=== PATIENT | male | born 1990 | race Caucasian/White ===

== ENCOUNTER 2021-05-13 16:43 | Emergency (ER) | payer MEDICAID, SELFPAY ==
--- NOTE | 2021-05-13 | ECG_ITS ---
Test Reason : dyspnea Blood Pressure : / mmHG Vent. 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
--- NOTE | ~2021-05-13 | XR_ITS ---
EXAMINATION: XR CHEST CLINICAL INFORMATION: Cough. COMPARISON: None TECHNIQUE: Frontal view of the chest was obtained. 5:55 PM FINDINGS: No significant abnormality is noted involving the heart, lungs, mediastinum, bony thorax or soft tissues. XR/XR chest 1V IMPRESSION: Unremarkable examination.
[2021-05-13 17:14] VITALS: BP 148/93; PULSE 95; RESP 20; TEMP 36.3; O2SAT 97; BMI 30.2
--- NOTE | 2021-05-13 17:27 | ED_ITS ---
HPI - URI/Sore Throat General Chief Complaint: Upper Respiratory Symptoms Stated Complaint: CP, nose pain Time Seen by Provider: 05/13/21 17:24 Source: patient Mode of arrival: ambulatory Limitations: no limitations History of Present Illness HPI Narrative: 31-year-old male with no medical problems presents to the ER with central chest pains and coughing that started yesterday. He reports some body aches, weakness, and fatigue as well. He called out of work yesterday because he was not feeling well. He reports whenever he coughs he has a heavy and tight chest pains. Pain is worse with deep breaths and with palpation of his chest wall. No fever or chills. He has sweating episodes and feels like he might have had a fever but has not checked his temp. He is not having SOB or BRITTON. No leg swelling or pain. No known sick contacts. He is not vaccinated against COVID-19. MD elicited complaint: cough and nasal congestion Onset (ago): day(s) (1) Consistency: intermittent Severity: moderate Pain scale (0-10): 5 Description of mucous: clear Able to tolerate fluids by mouth: Yes Exacerbating factors: deep breaths and other (coughing) Relieving factors: nothing Associated symptoms: myalgias, diaphoresis, headache, nasal congestion, cough and chest pain Treatments prior to arrival: none Related Data Previous Rx's Medication Instructions Recorded azithromycin 250 mg tablet See Rx Instructions .ROUTE 05/13/21 (Zithromax Z-Jorge) .COMPLEX #6 tab hydrocodone-homatropine 5 mg-1.5 5 ml PO Q4-6H PRN #60 ml 05/13/21 mg/5 mL (5 mL) oral syrup (Hycodan) ibuprofen 600 mg tablet 600 mg PO Q8H PRN #14 tab 05/13/21 Allergies Allergy/AdvReac Type Severity Reaction Status Date / Time Unable to Assess Allergy Unverified 05/13/21 17:25 Review of Systems Review of Systems: Constitutional: No Fever, No Chills ENT/Mouth: No sore throat, No Rhinorrhea, No Swallowing Difficulty Cardiovascular: + Chest Pain, No SOB, No Orthopnea, No Edema Respiratory: + Cough, + Sputum, No Wheezing, No dyspnea Gastrointestinal: No Nausea, No Vomiting, No Diarrhea, No abdominal Pain Musculoskeletal: No joint pain, No Myalgias Skin: No Skin Lesions, No rash Neuro: No Weakness, No Numbness, No Dizziness, No Headache Psych: No Anxiety/Panic, No Depression Heme/Lymph: No Bruising, No Lymphadenopathy [facility], [facility] Social History Social History Advance Directives: No Advance Directives Information Provided: Yes Physical Exam Vital Signs: Vital Signs: Last Vital Signs Temp 97.4 F 05/13/21 17:14 Pulse 95 05/13/21 17:14 Resp 20 05/13/21 17:14 BP 148/93 H 05/13/21 17:14 Pulse Ox 97 05/13/21 17:14 Body Mass Index 30.2 Appearance: Alert. Oriented X3. No acute distress. Eyes: Pupils equal, round and reactive to light. ENT: Pharynx normal. Neck: Normal inspection. Neck supple. CVS: Normal heart rate and rhythm. Pulses normal. Respiratory: No respiratory distress. Breath sounds normal. Abdomen: Soft and nontender. +BS x4 Skin: Skin warm and dry. Normal skin color. Normal skin turgor. No rashes. Extremities: No lower extremity edema. Neuro: Oriented X 3. No motor deficit. No sensory deficit. Course Course Course Narrative: 31-year-old healthy male presenting with cough and chest pains x1 day. Pains occur with movement and coughing. Worse with palpation. He also reports some weakness, fatigue and muscle aches. Concern for possible COVID-19. Will check chest x-ray, EKG, COVID swab. He is nontoxic appearing. No risk factors for PE. Doubt ACS. Reevaluation(s) Reevaluation #1: COVID swab is negative. MDM - URI/Sore Throat Lab Data Labs: Lab Results 05/13/21 Range/Units 17:32 COVID-19 ([facility]) Negative (Negative) COVID-19 Clin Com See Note ECG Data Attestation: I personally reviewed and interpreted this ECG as follows: ECG interpretation date: 05/13/21 ECG interpretation time: 17:45 Prior ECG tracings: not available for review Interpretation: normal sinus rhythm, HR 96 bpm, normal CA interval, t-wave inversions in leads II, III, aVF, No ST segment elevations or depressions. Critical Care Time Critical Care Time Critical Care Time: No Discharge Plan Discharge Clinical Impression: Costochondritis, Bronchitis Patient Disposition: Home, Self-Care Instructions: Costochondritis (ED), Acute Bronchitis (ED) Additional Instructions: Your COVID test was negative. You being treated for acute bronchitis with cough medicine antibiotics. Take as directed Rest and increase your fluid intake Your chest pains are muscular from irritation and inflammation of the muscles of the chest wall. The prescribed anti-inflammatories will help with this. Recommend following up with your doctor as needed. If you have any worsening pains or develops shortness of breath difficulty breathing call 911 or come back to the ER for further evaluation. Prescriptions: New hydrocodone-homatropine [Hycodan] 5-1.5 mg/5 mL (5 mL) syrup 5 ml PO Q4-6H PRN (Reason: cough) Qty: 60 RF: 0 azithromycin [Zithromax Z-Jorge] 250 mg tablet See Rx Instructions .ROUTE .COMPLEX Qty: 6 RF: 0 ibuprofen 600 mg tablet 600 mg PO Q8H PRN (Reason: pain) Qty: 14 RF: 0 Stand Alone Forms: Work/School Release
[2021-05-13 17:53] LABS: COVID-19 Test Negative (Negative)
== END 2021-05-13 18:24 | disposition home or self-care (01) ==
PROVIDERS: Physician Assistant; Emergency Provider Internal Medicine
DX: M94.0 Chondrocostal junction syndrome [Tietze] (principal); J20.9 Acute bronchitis, unspecified; R53.83 Other fatigue; M79.10 Myalgia, unspecified site; Z20.822 Contact with and (suspected) exposure to COVID-19
CPT/HCPCS: 36415; 71045; 87635; 93005; 99283; 99284

== ENCOUNTER 2022-04-12 15:37 | Emergency (ER) | payer OTHER, SELFPAY | END 2022-04-12 18:01 | disposition left against medical advice (07) | PROVIDERS: Emergency Provider Emergency Medicine | DX: Z02.89 Encounter for other administrative examinations (principal) ==